=== PATIENT | female | born 1970 | race Two or more races ===

== ENCOUNTER 2024-05-29 13:00 | Outpatient (RCR) | payer MEDICAID, SELFPAY ==
--- NOTE | 2024-05-08 13:06 | PTNOTE_ITS ---
PT OP Initial Eval Patient Information Outpatient Physical Therapy Treatment Date: 05/08/24 Visit Reasons: Left knee Surgery Medical Diagnosis: L knee pain Treatment Dx #1: L knee pain Start of Care: 05/08/24 Date of Onset: 02/08/24 Smoking Status Smoking Status: Never smoker Initial Assessment Subjective: Pt is 53 yr old omani speaking female who c/o L knee pain s/p L knee A/S in [place]. She had fallen prior to sx and then went to [place] and fell again and went for emergency sx there. Now she reports pain with walking more than 10 minutes, going up stairs, squatting. PMH: none reported Pt goal: less L knee pain to walk further for exercise. Objective: L knee AROM: ? Flexion: 90 deg ? Extension: full ? Observation: valgus knees ? SLR: 55 deg with slight extensor lag ? Strength: L quads 4-/5 limited by patella compression pain, hamstrings 4/5 ? Mild Antalgic gait pattern with decreased stance time on L Assessment: Pt presentation consistent with post op L knee A/S with decreased ROM, ? strength and WB tolerance. Pt ambulates with decreased WB on L. Pt has ? pain at first resistance into knee flexion that limits end-range ? tolerance and PROM. Pt can SLR slowly and has slight extensor lag. Pt requires skilled therapy in order to improve strength and ROM and has good rehab potential with attainable functional improvement. Eval followed by HEP with ?materials. [employer] and [employer] Worker Goals 1. Independent with HEP ? 2. Improved knee flexion ROM to 115 deg ? 3. Improved quad and hamstring strength to 4/5 ? 4. Improved ambulatory tolerance to community distances with symmetrical ? gait pattern. Treatment Plan 1. Manual therapy ? 2. Therex ? 3. Modalities as indicated, moist heat, ice, TENS Frequency and Duration: 2x a week for 8 weeks plus evaluation Certification Dates: 05/08/24 to 08/06/24 Procedure Charges OP PT Eval Mod Complex 30 minutes: Yes
--- NOTE | 2024-05-15 13:58 | PT.ODAYNRPT ---
PT Outpatient Daily Note OP Daily Note Outpatient Physical Therapy Treatment Date: 05/15/24 Visit Reasons: Left knee Surgery Subjective: Same as time of evaluation Objective: See F/S for therex Ice x5' L knee post Rx Assessment: Pt challenged by resisted therex today due to weakness and pain Plan: Continue per POC Length of Time (minutes) of Treatment: 30 Minutes Procedure Charges Therapeutic Exercise 30 minutes: Yes
--- NOTE | 2024-05-22 15:13 | PT.ODAYNRPT ---
PT Outpatient Daily Note OP Daily Note Outpatient Physical Therapy Treatment Date: 05/22/24 Visit Reasons: Left knee Surgery Subjective: Continued L knee pain Objective: See F/S for therex Ice x5' L knee post Rx Assessment: Pt challenged by resisted therex due to weakness and pain Plan: Continue per POC Length of Time (minutes) of Treatment: 30 Minutes Procedure Charges Therapeutic Exercise 30 minutes: Yes
--- NOTE | 2024-05-29 14:13 | PT.ODAYNRPT ---
PT Outpatient Daily Note OP Daily Note Outpatient Physical Therapy Treatment Date: 05/29/24 Visit Reasons: Left knee Surgery Subjective: Pt reports L knee is sore and painful. Objective: Please see flow sheet for ther ex list. Assessment: Pt demonstrates poor activity tolerance due to pain response. Plan: Continue with POC. Length of Time (minutes) of Treatment: 30 Minutes Procedure Charges Therapeutic Exercise 30 minutes: Yes
== END 2024-06-02 23:59 | disposition home or self-care (01) ==
LOC: CPTX 13:00
PROVIDERS: PCP Orthopaedic Surgery; Referring Provider Orthopaedic Surgery; Visit Provider Orthopaedic Surgery
DX: M25.562 Pain in left knee (principal); Z98.890 Other specified postprocedural states
CPT/HCPCS: 97110; 97162

== ENCOUNTER 2024-06-06 13:17 | Outpatient (RCR) | payer MEDICAID, SELFPAY ==
--- NOTE | 2024-06-06 13:37 | PT.ODS1RPT ---
PT OP Progress/Discharge Note Date of Service: 06/06/24 Progress Note/DC Note Progress Note/Discharge Note: DC Note Patient Information Visit Reasons: Left knee surgery Service Continue Service or Discharge: Discharge Discharge Date: 06/06/24 Status Subjective: Pt reports knee pain unchanged since starting therapy, soreness after visits, intense pain of the L LE yesterday. Says she has Hx of LBP due to disk issues. Objective: Same as time of evaluation L SLR: positive Assessment: Pt attended the eval and 4 Rx visits with limited progress with therapy goals due to L LE pain which may be radicular. Pt has positive SLR testing on the L and PMH of LBP. Pt not likely going to meet goals due to the lumbar spine issues which appear to be radiating into the LE. Plan: D/C Procedure Charges Therapeutic Exercise 30 minutes: Yes
== END 2024-07-03 23:59 | disposition home or self-care (01) ==
LOC: CPTX 13:17
PROVIDERS: PCP Orthopaedic Surgery; Referring Provider Orthopaedic Surgery; Visit Provider Orthopaedic Surgery
DX: M25.562 Pain in left knee (principal); Z98.890 Other specified postprocedural states
CPT/HCPCS: 97110